=== PATIENT | female | born 1965 | race Caucasian/White ===

== ENCOUNTER → 2022-05-21 | Outpatient (CLI) | payer MEDICARE ==
--- NOTE | 2022-05-21 09:12 | MR ---
EXAMINATION TYPE: MR cervical spine wo/w con DATE OF EXAM: 05/21/2022 INDICATION: Patient age:Female; 56 years old; Reason for study: M54.2 CERVICALGIA, M54.12 RADICULOPATHY. Neck and upper back pain that radiates int o both arms, history of surgery. COMPARISON: None. TECHNIQUE: Multi planar, multi sequence imaging was performed utilizing: T1-weighted, T2-weighted, an d turbo inversion recovery imaging of the cervical spine. Imaging with and without IV contrast. IV Contrast: 6.5 cc Gadavist FINDINGS: Alignment: The cervical vertebral bodies have preserved heights. Alignment is within normal limits gi payton patient positioning. Bones: Bone signal is within normal limits. Multilevel degenerative disc disease is noted and most p ronounced at the C5-C7. vertebral levels. No abnormal postcontrast enhancement. Cord: A T2 signal focus within the spinal cord at the level of C6-C7. (Series 601 image 25) The remai nder of the spinal cord is unremarkable with regards to their signal intensity and morphology. No abn ormal postcontrast enhancement. Discs: Post surgical changes at C5-C6 and C6-C7. C2-C3: No significant disc pathology. The spinal canal is patent. No neural foraminal stenosis. C3-C4: A disc osteophyte complex is present with mild spinal canal stenosis. Bilateral facet and unc overtebral joint arthropathy are present with mild bilateral neural foraminal stenosis. C4-C5: A disc osteophyte complex is present with mild spinal canal stenosis. Bilateral facet and unc overtebral joint arthropathy are present with mild bilateral neural foraminal stenosis. C5-C6: The disc is surgically absent there is at least moderate spinal canal stenosis secondary to po st surgical osteophyte complex versus calcification of the posterior longitudinal ligament. Bilateral facet and uncovertebral joint arthropathy are present with moderate bilateral neural foraminal steno sis. C6-C7: The disc is surgically absent there is at least moderate spinal canal stenosis secondary to po st surgical osteophyte complex versus calcification of the posterior longitudinal ligament. Bilateral facet and uncovertebral joint arthropathy are present with moderate bilateral neural foraminal steno sis. C7-T1: No significant disc pathology. The spinal canal is patent. No neural foraminal stenosis. There is somewhat elongated suspected postsurgical osteophyte complex's dictation in the posterior lo ngitudinal ligament extending from C5 to C7 impresses upon the spinal cord with at least moderate spi nal canal stenosis at the level of C5-C6 includes 601 image 22, image 27, image 30. IMPRESSION: 1. Postsurgical changes with at least moderate spinal canal stenosis C5-C7 from suspected posterior longitudinal ligament calcification versus postsurgical osteophytes which impress upon the anterior s spencer cord. Single focus of spinal cord abnormality changes at C6-C7 likely chronic. 2. Multilevel disc degeneration changes with at least moderate neural foraminal stenosis C5-C7. 3. No abnormal postcontrast enhancement.
== END | disposition home or self-care (01) ==
LOC: RADMRIMAIN 07:50
PROVIDERS: ATTEND Orthopaedic Surgery Orthopaedic Surgery of the Spine
DX: M48.02 Spinal stenosis, cervical region (principal); M50.323 Other cervical disc degeneration at C6-C7 level
CPT/HCPCS: 72156; A9585

== ENCOUNTER 2024-12-07 12:17 | Emergency (ER) | payer MEDICARE ==
[2024-12-07 12:27] VITALS: RESP 18
--- NOTE | 2024-12-07 14:00 | ED ---
Fever HPI - General Chief Complaint: Abdominal Pain Stated Complaint: Fever, Lower ABD and Back Pain Time Seen by Provider: 12/07/24 13:28 Source: patient Mode of arrival: ambulatory Limitations: no limitations - History of Present Illness Initial Comments: This patient is a 59-year-old woman coming to have evaluation for fever. The patient states that she has not been feeling well and has noted the fever going back 4 days. She has not had specific symptoms infection other than having a cold sore but that came on 10 days ago. She has not had congestion, sore throat, cough, dyspnea, chest pain. No change in bowel movements. She does note some lower abdominal fullness and states that she does have urinary frequency but denies dysuria, hematuria or other symptoms. MD Complaint: fever Onset/Timin -: days(s) Temperature Source: oral Associated Symptoms: chills Treatments Prior to Arrival: none - Related Data Previous Rx's Medication Instructions Recorded Cephalexin [Keflex] 500 mg PO Q6HR 1 Days #12 cap 12/07/24 Allergies Allergy/AdvReac Type Severity Reaction Status Date / Time Penicillins Allergy Unknown Verified 12/07/24 12:27 Review of Systems ROS Statement: Those systems with pertinent positive or pertinent negative responses have been documented in the HPI. ROS Other: All systems not noted in ROS Statement are negative. Constitutional: Reports: fever. Denies: chills, weakness ENT: Denies: throat pain, congestion Respiratory: Denies: cough, dyspnea Cardiovascular: Denies: chest pain, palpitations, edema, syncope Gastrointestinal: Reports: as per HPI, abdominal pain. Denies: nausea, vomitin g, diarrhea, constipation, melena, hematochezia Genitourinary: Reports: frequency. Denies: urgency, dysuria, hematuria Musculoskeletal: Denies: back pain Skin: Denies: rash Neurological: Denies: headache, weakness, numbness Past Medical History Additional Past Medical History / Comment(s): RA Additional Past Surgical History / Comment(s): cervical spine, toe, tummy tuck Smoking Status: Former smoker Past Alcohol Use History: Occasional Past Drug Use History: Marijuana General Exam Limitations: no limitations General appearance: alert, in no apparent distress Head exam: Present: atraumatic, normocephalic Eye exam: Present: normal appearance. Absent: scleral icterus, conjunctival injection ENT exam: Present: normal oropharynx Neck exam: Present: normal inspection, full ROM. Absent: tenderness, meningismus, lymphadenopathy Respiratory exam: Present: normal lung sounds bilaterally. Absent: respiratory distress, wheezes, rales, rhonchi, stridor, accessory muscle use Cardiovascular Exam: Present: regular rate, normal rhythm, normal heart sounds. Absent: systolic murmur, diastolic murmur, rubs, gallop GI/Abdominal exam: Present: soft. Absent: distended, tenderness, guarding, rebound, rigid, mass Extremities exam: Present: normal inspection, normal capillary refill. Absent: pedal edema, calf tenderness Back exam: Present: normal inspection. Absent: CVA tenderness (R), CVA tenderness (L) Neurological exam: Present: alert Skin exam: Present: warm, dry, intact, normal color. Absent: rash Course Vital Signs 12/07/24 12/07/24 12:24 14:12 Temperature 102 F H 97.8 F Pulse Rate 102 H 92 Respiratory 18 18 Rate Blood Pressure 136/83 126/64 O2 Sat by Pulse 97 99 Oximetry Medical Decision Making - Lab Data Result diagrams: 12/07/24 14:00 12/07/24 14:00 Lab Results 12/07/24 12/07/24 12/07/24 Range/Units 14:00 14:00 14:00 WBC 16.49 H (4.50-10.00) 10*3/uL RBC 4.40 (4.10-5.20) 10*6/uL Hgb 13.2 (12.0-15.0) g/dL Hct 40.4 (37.2-46.3) % MCV 91.8 (80.0-97.0) fL MCH 30.0 (27.0-32.0) pg MCHC 32.7 (32.0-37.0) g/dL Plt Count 424 (140-440) 10*3/uL MPV 9.1 L (9.5-12.2) fL Immature Gran % (Auto) 0.5 % Neutrophils % 89.2 % Lymphocytes % 4.7 % Monocytes % 5.3 % Eosinophils % 0.2 % Basophils % 0.1 % Immature Gran # 0.08 H (0.00-0.04) 10*3/uL Neutrophils # 14.72 H (1.80-7.70) 10*3/uL Lymphocytes # 0.77 L (0.90-5.00) 10*3/uL Monocytes # 0.87 (0.20-1.00) 10*3/uL Eosinophils # 0.03 L (0.04-0.35) 10*3/uL Basophils # 0.02 (0.00-0.10) 10*3/uL Sodium 137 (137-145) mmol/L Potassium 4.6 (3.5-5.1) mmol/L Chloride 97 L (98-107) mmol/L Carbon Dioxide 30 (22-30) mmol/L Anion Gap 10 mmol/L BUN 15 (7-17) mg/dL Creatinine 0.43 L (0.52-1.04) mg/dL Est GFR (CKD-EPI)AfAm >90 (>60 ml/min/1.73 sqM) Est GFR (CKD-EPI)NonAf >90 (>60 ml/min/1.73 sqM) Glucose 103 H (74-99) mg/dL Plasma Lactic Acid Mason 1.9 (0.7-2.0) mmol/L Calcium 9.3 (8.4-10.2) mg/dL Total Bilirubin 0.8 (0.2-1.3) mg/dL AST 36 (14-36) U/L ALT 21 (4-34) U/L Alkaline Phosphatase 73 (38-126) U/L C-Reactive Protein 17.3 H (<1.0) mg/dL Total Protein 7.6 (6.3-8.2) g/dL Albumin 4.1 (3.5-5.0) g/dL Urine Color Urine Appearance (Clear) Urine pH (5.0-8.0) Ur Specific [place] (1.001-1.035) Urine Protein (Negative) Urine Glucose (UA) (Negative) Urine Ketones (Negative) Urine Blood (Negative) Urine Nitrite (Negative) Urine Bilirubin (Negative) Urine Urobilinogen (<2.0) mg/dL Ur Leukocyte Esterase (Negative) Urine RBC (0-5) /hpf Urine WBC (0-5) /hpf Ur Squamous Epith Cells (0-4) /hpf Urine Bacteria (None) /hpf Influenza Type A (PCR) (Not Detectd) Influenza Type B (PCR) (Not Detectd) RSV (PCR) (Not Detectd) SARS-CoV-2 (PCR) (Not Detectd) 12/07/24 12/07/24 Range/Units 14:09 15:08 WBC (4.50-10.00) 10*3/uL RBC (4.10-5.20) 10*6/uL Hgb (12.0-15.0) g/dL Hct (37.2-46.3) % MCV (80.0-97.0) fL MCH (27.0-32.0) pg MCHC (32.0-37.0) g/dL Plt Count (140-440) 10*3/uL MPV (9.5-12.2) fL Immature Gran % (Auto) % Neutrophils % % Lymphocytes % % Monocytes % % Eosinophils % % Basophils % % Immature Gran # (0.00-0.04) 10*3/uL Neutrophils # (1.80-7.70) 10*3/uL Lymphocytes # (0.90-5.00) 10*3/uL Monocytes # (0.20-1.00) 10*3/uL Eosinophils # (0.04-0.35) 10*3/uL Basophils # (0.00-0.10) 10*3/uL Sodium (137-145) mmol/L Potassium (3.5-5.1) mmol/L Chloride (98-107) mmol/L Carbon Dioxide (22-30) mmol/L Anion Gap mmol/L BUN (7-17) mg/dL Creatinine (0.52-1.04) mg/dL Est GFR (CKD-EPI)AfAm (>60 ml/min/1.73 sqM) Est GFR (CKD-EPI)NonAf (>60 ml/min/1.73 sqM) Glucose (74-99) mg/dL Plasma Lactic Acid Mason (0.7-2.0) mmol/L Calcium (8.4-10.2) mg/dL Total Bilirubin (0.2-1.3) mg/dL AST (14-36) U/L ALT (4-34) U/L Alkaline Phosphatase (38-126) U/L C-Reactive Protein (<1.0) mg/dL Total Protein (6.3-8.2) g/dL Albumin (3.5-5.0) g/dL Urine Color Colorless Urine Appearance Clear (Clear) Urine pH 7.0 (5.0-8.0) Ur Specific [place] 1.013 (1.001-1.035) Urine Protein Negative (Negative) Urine Glucose (UA) Negative (Negative) Urine Ketones Negative (Negative) Urine Blood Small H (Negative) Urine Nitrite Positive H (Negative) Urine Bilirubin Negative (Negative) Urine Urobilinogen <2.0 (<2.0) mg/dL Ur Leukocyte Esterase Moderate H (Negative) Urine RBC 5 (0-5) /hpf Urine WBC 27 H (0-5) /hpf Ur Squamous Epith Cells <1 (0-4) /hpf Urine Bacteria Occasional H (None) /hpf Influenza Type A (PCR) Not Detected (Not Detectd) Influenza Type B (PCR) Not Detected (Not Detectd) RSV (PCR) Not Detected (Not Detectd) SARS-CoV-2 (PCR) Not Detected (Not Detectd) Disposition Clinical Impression: Urinary tract infection Disposition: HOME SELF-CARE Condition: Good Instructions (If sedation given, give patient instructions): Urinary Tract Infection in Women (ED) Prescriptions: Cephalexin [Keflex] 500 mg PO Q6HR 1 Days #12 cap Is patient prescribed a controlled substance at d/c from ED?: No Referrals: Pranav Cam MD [Primary Care Provider] - 1-2 days
[2024-12-07 14:07] LABS: Basophils # (A) 0.02 10*3/uL (0.00-0.10); Basophils % (A) 0.1 %; Eosinophils # (A) 0.03 10*3/uL (0.04-0.35); Eosinophils % (A) 0.2 %; HCT 40.4 % (37.2-46.3); HGB 13.2 g/dL (12.0-15.0); Lymphocytes # (A) 0.77 10*3/uL (0.90-5.00); Lymphocytes % (A) 4.7 %; MCHC 32.7 g/dL (32.0-37.0); MCV 91.8 fL (80.0-97.0); Mean Platelet Volume 9.1 fL (9.5-12.2); Monocytes # (A) 0.87 10*3/uL (0.20-1.00); Monocytes % (A) 5.3 %; Neutrophils # (A) 14.72 10*3/uL (1.80-7.70); Neutrophils % (A) 89.2 %; Platelet Count 424 10*3/uL (140-440); RDW 14.8 % (11.5-14.5); WBC 16.49 10*3/uL (4.50-10.00)
[2024-12-07] MEDS: ACETAMINOPHEN TAB 325 MG TAB PO STA (14:10)
[2024-12-07] MEDS: SODIUM CHLORIDE 0.9% 1,000 ML IV ONE (14:11)
[2024-12-07 14:15] VITALS: TEMP 97.8
[2024-12-07 14:19] LABS: ALT 21 U/L (4-34); African American GFR (CKD) >90 (>60 ml/min/1.73 sqM); Anion Gap 10 mmol/L; Blood Urea Nitrogen 15 mg/dL (7-17); Calcium 9.3 mg/dL (8.4-10.2); Carbon Dioxide 30 mmol/L (22-30); Chloride 97 mmol/L (98-107); Glucose 103 mg/dL (74-99); Non-African American GFR(CKD) >90 (>60 ml/min/1.73 sqM); Sodium 137 mmol/L (137-145); Total Bilirubin 0.8 mg/dL (0.2-1.3)
[2024-12-07 14:30] LABS: C Reactive Protein 17.3 mg/dL (<1.0)
[2024-12-07 14:35] LABS: AST 36 U/L (14-36); Albumin 4.1 g/dL (3.5-5.0); Potassium 4.6 mmol/L (3.5-5.1); Total Protein 7.6 g/dL (6.3-8.2)
[2024-12-07 14:36] LABS: Alkaline Phosphatase 73 U/L (38-126)
[2024-12-07 14:51] LABS: Influenza A Not Detected (Not Detectd); Influenza B Not Detected (Not Detectd); RSV Not Detected (Not Detectd)
[2024-12-07 15:35] LABS: Appearance,Urine Clear (Clear); Bacteria,Urine Occasional /hpf; Bilirubin,Urine Negative (Negative); Blood,Urine Small (Negative); Color,Urine Colorless; Glucose,Urine (UA) Negative (Negative); Ketones,Urine Negative (Negative); Leukocyte Esterase,Urine Moderate (Negative); Nitrite,Urine Positive (Negative); Protein,Urine Negative (Negative); RBC,Urine 5 /hpf (0-5); Specific Gravity,Urine 1.013 (1.001-1.035); Squamous Epithelial Cell,Urine <1 /hpf (0-4); Urobilinogen,Urine <2.0 mg/dL (<2.0); WBC,Urine 27 /hpf (0-5)
--- NOTE | 2024-12-07 16:05 | CT ---
EXAMINATION TYPE: CT abdomen pelvis w con DATE OF EXAM: 12/07/2024 3:59 PM COMPARISON: None available. CLINICAL INDICATION: Female, 59 years old with history of abdominal pain, RLQ tenderness; RLQ PAIN TECHNIQUE: Axial CT abdomen pelvis w con;Sagittal and coronal reformats were created on a separate w orkstation. Contrast used:100 mL of Isovue 300 with IV Contrast, (none if empty) Oral contrast used: without Oral Contrast (none if empty) CT DLP: 632.6 mGycm, Automated exposure control for dose reduction was used. FINDINGS: LOWER CHEST: Unremarkable ABDOMEN LIVER: Unremarkable GALLBLADDER AND BILE DUCTS: Unremarkable. PANCREAS: Unremarkable. SPLEEN: Unremarkable. ADRENAL GLANDS: Unremarkable. KIDNEYS AND URETERS: No evidence of hydronephrosis or renal calculus. The ureters are unremarkable. PELVIS BLADDER: No evidence for wall thickening or mass given limitations of exam. REPRODUCTIVE: Unremarkable. ABDOMEN & PELVIS STOMACH AND BOWEL: Stomach and duodenum are unremarkable. Moderate sized hernia. Moderate to large vo lume diffuse colonic stool burden suggesting constipation. Of colonic diverticulosis without acute di verticulitis. Appendix not discretely visualized but there are no secondary findings suggestive of ac jena appendicitis. No evidence of bowel obstruction. PERITONEUM/RETROPERITONEUM: No evidence of pneumoperitoneum or free fluid. VASCULATURE: No evidence of aortic aneurysm. MUSCULOSKELETAL: No acute osseous abnormalities LYMPH NODES: No gross evidence for lymphadenopathy. SOFT TISSUE/ABDOMINAL WALL: Unremarkable IMPRESSION: 1. No acute abnormality in the abdomen/pelvis. 2. Moderate to large volume colonic stool suggesting constipation. 3. Colonic diverticulosis without acute diverticulitis. [facility], , 12/07/2024 4:03 PM
[2024-12-07 16:59] VITALS: BP 121/76; PULSE 91
== END 2024-12-07 17:21 | disposition home or self-care (01) ==
LOC: EC 12:17
DX: N39.0 Urinary tract infection, site not specified (principal); Z11.52 Encounter for screening for COVID-19; Z87.891 Personal history of nicotine dependence; Z88.0 Allergy status to penicillin
CPT/HCPCS: 36415; 80053; 83605; 85025; 86140; 81001; 87636; 74177; 99284; 96374; 96361; J0696; Q9967

== ENCOUNTER 2024-12-18 14:57 | Inpatient (IN) | payer MEDICARE ==
--- NOTE | 2024-12-18 16:29 | US ---
EXAMINATION TYPE: US renals and bladder DATE OF EXAM: 12/18/2024 COMPARISON: CT CLINICAL INDICATION: Female, 59 years old with history of UTI TECHNIQUE: Grayscale imaging of the bilateral kidneys and urinary bladder: FINDINGS: EXAM MEASUREMENTS: Right Kidney: 11.4 x 5.1 x 4.9 cm Left Kidney: 11.0 x 6.7 x 5.9 cm Right Kidney: No hydronephrosis or masses seen Left Kidney: No hydronephrosis or masses seen, though the upper and lower poles gassed out limiting t heir assessment Bladder: wnl Bilateral Jets seen: Yes IMPRESSION: No hydronephrosis. Bladder grossly unremarkable by ultrasound. [facility], Workstation: [email or web address], 12/18/2024 4:27 PM
[2024-12-18] MEDS: PANTOPRAZOLE 40 MG/10 ML VIAL IVP STA (16:38)
[2024-12-18] MEDS: ACETAMINOPHEN TAB 500 MG TAB PO STA (16:38)
[2024-12-18] MEDS: ONDANSETRON 4 MG/2 ML VIAL IVP STA (16:38)
[2024-12-18] MEDS: SODIUM CHLORIDE 0.9% 1,000 ML IV ONE (16:39)
[2024-12-18] MEDS: IBUPROFEN 800 MG TAB PO STA (16:39)
[2024-12-18 16:55] LABS: Basophils # (A) 0.05 10*3/uL (0.00-0.10); Basophils % (A) 0.2 %; Eosinophils # (A) 0.08 10*3/uL (0.04-0.35); Eosinophils % (A) 0.3 %; HCT 36.1 % (37.2-46.3); HGB 11.8 g/dL (12.0-15.0); Lymphocytes # (A) 0.88 10*3/uL (0.90-5.00); Lymphocytes % (A) 3.2 %; MCH 29.1 pg (27.0-32.0); MCHC 32.7 g/dL (32.0-37.0); MCV 88.9 fL (80.0-97.0); Mean Platelet Volume 8.4 fL (9.5-12.2); Monocytes % (A) 5.5 %; Neutrophils # (A) 24.69 10*3/uL (1.80-7.70); Neutrophils % (A) 90.1 %; Platelet Count 578 10*3/uL (140-440); RBC 4.06 10*6/uL (4.10-5.20); RDW 15.2 % (11.5-14.5); WBC 27.39 10*3/uL (4.50-10.00)
[2024-12-18 17:07] LABS: Partial Thromboplastin Time 25.9 sec (22.0-30.0)
[2024-12-18 17:09] LABS: Appearance,Urine Clear (Clear); Bilirubin,Urine Negative (Negative); Blood,Urine Small (Negative); Budding Yeast,Urine Few /hpf; Color,Urine Yellow; Glucose,Urine (UA) Negative (Negative); Ketones,Urine Negative (Negative); Leukocyte Esterase,Urine Moderate (Negative); Mucus,Urine Rare /hpf; Nitrite,Urine Negative (Negative); Protein,Urine 1+ (Negative); RBC,Urine 8 /hpf (0-5); Specific Gravity,Urine 1.009 (1.001-1.035); Squamous Epithelial Cell,Urine 1 /hpf (0-4); Urobilinogen,Urine <2.0 mg/dL (<2.0); WBC,Urine 95 /hpf (0-5)
[2024-12-18 17:14] LABS: ALT 30 U/L (4-34); AST 31 U/L (14-36); African American GFR (CKD) >90 (>60 ml/min/1.73 sqM); Albumin 3.5 g/dL (3.5-5.0); Alkaline Phosphatase 136 U/L (38-126); Amylase 50 U/L (30-110); Anion Gap 11 mmol/L; Blood Urea Nitrogen 15 mg/dL (7-17); Calcium 9.4 mg/dL (8.4-10.2); Carbon Dioxide 29 mmol/L (22-30); Chloride 96 mmol/L (98-107); Glucose 97 mg/dL (74-99); Lipase 25 U/L (23-300); Non-African American GFR(CKD) >90 (>60 ml/min/1.73 sqM); Potassium 4.6 mmol/L (3.5-5.1); Sodium 136 mmol/L (137-145); Total Bilirubin 0.7 mg/dL (0.2-1.3)
[2024-12-18] MEDS ORDERED: NALOXONE 0.4 MG/ML 1 ML VIAL IV PRN (18:00)
[2024-12-18] MEDS ORDERED: ONDANSETRON 4 MG/2 ML VIAL IVP PRN (18:00)
--- NOTE | 2024-12-18 18:00 | ED ---
General Adult HPI - General Chief complaint: Abdominal Pain Stated complaint: Urogenital/Here a week ago Time Seen by Provider: 12/18/24 15:25 Source: patient, RN notes reviewed, old records reviewed Mode of arrival: ambulatory Limitations: no limitations - History of Present Illness Initial comments: Patient is a 59-year-old female presents Emergency Department complaining of abdominal pain, dysuria. Concerned that her UTI is continuing. Originally seen on December 07 for similar complaints. Has completed a course of antibiotics and then started on a second course of antibiotics but symptoms have persisted. Is having lower anterior abdominal pain and some back pain with it. Fever currently is 102.9. Denies any nausea vomiting or diarrhea. Denies any chest pain or shortness of breath or cough. Denies any other acute complaints. Concern for UTI. Presents for further evaluation at this time. - Related Data Home Medications Medication Instructions Recorded Confirmed Acetaminophen/Diphenhydramine 2 tab PO HS 12/18/24 12/18/24 [Tylenol PM 500-25mg] Ciprofloxacin HCl [Cipro] 500 mg PO Q12HR 12/18/24 12/18/24 Gabapentin [Neurontin] 300 mg PO HS 12/18/24 12/18/24 HYDROcodone/APAP 10-325MG [[place] 1 tab PO Q4-6H PRN MDD 4.5 tabs 12/18/24 12/18/24 10-325] cycloSPORINE 0.05% OPHTH SOLN 1 applicator BOTH EYES Q12H 12/18/24 12/18/24 [Restasis] prednisoLONE ACETATE 1% OPHTH 1 drop BOTH EYES BID PRN 12/18/24 12/18/24 [Pred Forte 1%] Allergies Allergy/AdvReac Type Severity Reaction Status Date / Time Penicillins Allergy Unknown Verified 12/18/24 16:56 Childhood Review of Systems ROS Statement: Those systems with pertinent positive or pertinent negative responses have been documented in the HPI. Review of Systems: CONST: Denies fever EYES: Denies blurry vision ENT: Denies nasal congestion C/V: Denies Chest pain RESP: Denies shortness of breath GI: Endorses abdominal pain : Endorses dysuria SKIN: Denies rash. MSK: Denies joint pain. NEURO: Denies headache ROS Other: All systems not noted in ROS Statement are negative. Past Medical History Additional Past Medical History / Comment(s): RA Additional Past Surgical History / Comment(s): cervical spine, toe, tummy tuck Smoking Status: Former smoker Past Alcohol Use History: Occasional Past Drug Use History: Marijuana General Exam - General Exam Comments Initial Comments: General: Appears in no acute distress. HEAD: Normal with no signs of head trauma. EYES: PERRLA, EOMI, conjunctiva normal, no discharge. ENT: Hearing grossly intact, normal oropharynx. RESPIRATORY: Clear breath sounds bilaterally. No wheezes, rales, or rhonchi. C/V: Regular rate and rhythm. S1 and S2 auscultated, no edema, peripheral pulses 2+ and intact throughout ABD: Lower abdominal discomfort on palpation. No significant guarding or rebound tenderness. No peritoneal signs. No rebound tenderness. EXT: Normal range of motion, no obvious deformity SKIN: No rashes or lesions observed on exposed skin. NEURO: Alert and oriented x 4. Limitations: no limitations Course Vital Signs 12/18/24 12/18/24 12/18/24 15:05 18:09 18:10 Temperature 102.9 F H 99.4 F Pulse Rate 96 88 90 Respiratory 16 18 18 Rate Blood Pressure 143/77 102/56 102/56 O2 Sat by Pulse 96 94 L 95 Oximetry Medical Decision Making - Medical Decision Making Was pt. sent in by a medical professional or institution (, PA, [employer], urgent care, hospital, or detention...) When possible be specific @ -No Did you speak to anyone other than the patient for history (EMS, parent, family, police, friend...)? What history was obtained from this source @ -No Did you review nursing and triage notes (agree or disagree)? Why? @ -I reviewed and agree with nursing and triage notes Were old charts reviewed (outside hosp., previous admission, EMS record, old EKG, old radiological studies, urgent care reports/EKG's, detention records)? Report findings @ -Reviewed old charts showing prior abdominal CT obtained on December 07, 2024 which showed no obvious acute abnormality. Differential Diagnosis (chest pain, altered mental status, abdominal pain women, abdominal pain men, vaginal bleeding, weakness, fever, dyspnea, syncope, headache, dizziness, GI bleed, back pain, seizure, CVA, palpatations, mental health, musculoskeletal)? @ -Differential Abdominal Pain Women: Appendicitis, Cholecystitis, diverticulosis, ischemic bowel, pancreatitis, hepatitis, UTI, gastroenteritis, AAA, incarcerated hernia, bowel obstruction, constipation, inflammatory bowel, hepatitis, peptic ulcer disease, splenic infarction, perforated viscus, vulvitis, ovarian torsion, PID, kidney stone, placenta abruption, this is not meant to be an all-inclusive list EKG interpreted by me (3pts min.). @ -As above X-rays interpreted by me (1pt min.). @ -None done CT interpreted by me (1pt min.). @ -None done U/S interpreted by me (1pt. min.). @ -Renal ultrasound negative for any obvious acute abnormality. What testing was considered but not performed or refused? (CT, X-rays, U/S, labs)? Why? @ -None What meds were considered but not given or refused? Why? @ -None Did you discuss the management of the patient with other professionals ( professionals i.e. , PA, [employer], lab, RT, psych nurse, secondary social studies teacher, railroad watchman, teacher, bank officer, adult protective caseworker)? Give summary @ -No Was smoking cessation discussed for >3mins.? @ -No Was critical care preformed (if so, how long)? @ -Yes, 31 minutes. Were there social determinants of health that impacted care today? How? (Homelessness, low income, unemployed, alcoholism, drug addiction, crockett sportation, low edu. Level, literacy, decrease access to med. care, shelter, rehab)? @ -No Was there de-escalation of care discussed even if they declined (Discuss DNR or withdrawal of care, Hospice)? DNR status @ -No What co-morbidities impacted this encounter? (DM, HTN, Smoking, COPD, CAD, Cancer, CVA, ARF, Chemo, Hep., AIDS, mental health diagnosis, sleep apnea, morbid obesity)? @ -None Was patient admitted / discharged? Hospital course, mention meds given and route, prescriptions, significant lab abnormalities, going to OR and other pertinent info. @ -Patient presents with what appears to be a recurrent UTI. Vitals are within acceptable limits except for fever of 102.9. We will obtain abdominal labs, urine studies, ultrasound of bladder and kidneys. Recent CT obtained 10 days ago was unremarkable. He is in agreement this plan. Patient was given Tylenol and Motrin as well as a 1 L fluid bolus. Laboratory studies remarkable for leukocytosis of 27. Hemoglobin is mildly low at 11.8. Is not on blood thinners. Patient's urinalysis concerning for UTI. I updated the patient. Patient does meet sepsis criteria she has multiple SIRS criteria, including elevated leukocytosis of 27 in addition to the fever. Patient met sepsis criteria at 1725. Patient placed on IV Rocephin, given additional 1 L fluid bolus of lactated Ringer's and placed on maintenance infusion at 130 cc an hour. Blood culture obtained and sent. Urine culture sent. Lactic acid within normal limits. Patient will be admitted to the hospital. I spoke with Dr. Cabrales who accepted the admission. Undiagnosed new problem with uncertain prognosis? @ -No Drug Therapy requiring intensive monitoring for toxicity (Heparin, Nitro, Insulin, Cardizem)? @ -No Were any procedures done? @ -No Diagnosis/symptom? @ -UTI, sepsis Acute, or Chronic, or Acute on Chronic? @ -Acute Uncomplicated (without systemic symptoms) or Complicated (systemic symptoms)? @ -Complicated Side effects of treatment? @ -No Exacerbation, Progression, or Severe Exacerbation? @ -No Poses a threat to life or bodily function? How? (Chest pain, USA, VT, pneumonia, PE, COPD, DKA, ARF, appy, cholecystitis, CVA, Diverticulitis, Homicidal, Suicidal, threat to staff... and all critical care pts) @ -Yes - Lab Data Result diagrams: 12/18/24 16:41 12/18/24 16:41 Lab Results 12/18/24 12/18/24 12/18/24 Range/Units 16:41 16:41 16:41 WBC 27.39 H (4.50-10.00) 10*3/uL RBC 4.06 L (4.10-5.20) 10*6/uL Hgb 11.8 L (12.0-15.0) g/dL Hct 36.1 L (37.2-46.3) % MCV 88.9 (80.0-97.0) fL MCH 29.1 (27.0-32.0) pg MCHC 32.7 (32.0-37.0) g/dL Plt Count 578 H (140-440) 10*3/uL MPV 8.4 L (9.5-12.2) fL Immature Gran % (Auto) 0.7 % Neutrophils % 90.1 % Lymphocytes % 3.2 % Monocytes % 5.5 % Eosinophils % 0.3 % Basophils % 0.2 % Immature Gran # 0.19 H (0.00-0.04) 10*3/uL Neutrophils # 24.69 H (1.80-7.70) 10*3/uL Lymphocytes # 0.88 L (0.90-5.00) 10*3/uL Monocytes # 1.50 H (0.20-1.00) 10*3/uL Eosinophils # 0.08 (0.04-0.35) 10*3/uL Basophils # 0.05 (0.00-0.10) 10*3/uL PT 11.0 (10.0-12.5) sec INR 1.0 (<1.2) APTT 25.9 (22.0-30.0) sec Sodium 136 L (137-145) mmol/L Potassium 4.6 (3.5-5.1) mmol/L Chloride 96 L (98-107) mmol/L Carbon Dioxide 29 (22-30) mmol/L Anion Gap 11 mmol/L BUN 15 (7-17) mg/dL Creatinine 0.51 L (0.52-1.04) mg/dL Est GFR (CKD-EPI)AfAm >90 (>60 ml/min/1.73 sqM) Est GFR (CKD-EPI)NonAf >90 (>60 ml/min/1.73 sqM) Glucose 97 (74-99) mg/dL Plasma Lactic Acid Mason (0.7-2.0) mmol/L Calcium 9.4 (8.4-10.2) mg/dL Total Bilirubin 0.7 (0.2-1.3) mg/dL AST 31 (14-36) U/L ALT 30 (4-34) U/L Alkaline Phosphatase 136 H (38-126) U/L Total Protein 7.0 (6.3-8.2) g/dL Albumin 3.5 (3.5-5.0) g/dL Amylase 50 (30-110) U/L Lipase 25 (23-300) U/L Urine Color Urine Appearance (Clear) Urine pH (5.0-8.0) Ur Specific [place] (1.001-1.035) Urine Protein (Negative) Urine Glucose (UA) (Negative) Urine Ketones (Negative) Urine Blood (Negative) Urine Nitrite (Negative) Urine Bilirubin (Negative) Urine Urobilinogen (<2.0) mg/dL Ur Leukocyte Esterase (Negative) Urine RBC (0-5) /hpf Urine WBC (0-5) /hpf Ur Squamous Epith Cells (0-4) /hpf Urine Mucus (None) /hpf Urine Yeast (Budding) (None) /hpf 12/18/24 12/18/24 Range/Units 16:41 16:41 WBC (4.50-10.00) 10*3/uL RBC (4.10-5.20) 10*6/uL Hgb (12.0-15.0) g/dL Hct (37.2-46.3) % MCV (80.0-97.0) fL MCH (27.0-32.0) pg MCHC (32.0-37.0) g/dL Plt Count (140-440) 10*3/uL MPV (9.5-12.2) fL Immature Gran % (Auto) % Neutrophils % % Lymphocytes % % Monocytes % % Eosinophils % % Basophils % % Immature Gran # (0.00-0.04) 10*3/uL Neutrophils # (1.80-7.70) 10*3/uL Lymphocytes # (0.90-5.00) 10*3/uL Monocytes # (0.20-1.00) 10*3/uL Eosinophils # (0.04-0.35) 10*3/uL Basophils # (0.00-0.10) 10*3/uL PT (10.0-12.5) sec INR (<1.2) APTT (22.0-30.0) sec Sodium (137-145) mmol/L Potassium (3.5-5.1) mmol/L Chloride (98-107) mmol/L Carbon Dioxide (22-30) mmol/L Anion Gap mmol/L BUN (7-17) mg/dL Creatinine (0.52-1.04) mg/dL Est GFR (CKD-EPI)AfAm (>60 ml/min/1.73 sqM) Est GFR (CKD-EPI)NonAf (>60 ml/min/1.73 sqM) Glucose (74-99) mg/dL Plasma Lactic Acid Mason 1.7 (0.7-2.0) mmol/L Calcium (8.4-10.2) mg/dL Total Bilirubin (0.2-1.3) mg/dL AST (14-36) U/L ALT (4-34) U/L Alkaline Phosphatase (38-126) U/L Total Protein (6.3-8.2) g/dL Albumin (3.5-5.0) g/dL Amylase (30-110) U/L Lipase (23-300) U/L Urine Color Yellow Urine Appearance Clear (Clear) Urine pH 7.0 (5.0-8.0) Ur Specific Tar[place] 1.009 (1.001-1.035) Urine Protein 1+ H (Negative) Urine Glucose (UA) Negative (Negative) Urine Ketones Negative (Negative) Urine Blood Small H (Negative) Urine Nitrite Negative (Negative) Urine Bilirubin Negative (Negative) Urine Urobilinogen <2.0 (<2.0) mg/dL Ur Leukocyte Esterase Moderate H (Negative) Urine RBC 8 H (0-5) /hpf Urine WBC 95 H (0-5) /hpf Ur Squamous Epith Cells 1 (0-4) /hpf Urine Mucus Rare H (None) /hpf Urine Yeast (Budding) Few H (None) /hpf - EKG Data -: EKG Interpreted by Me EKG Comments: 12-lead Electrocardiogram Interpretation Note EKG was reviewed and interpreted by myself. 12-lead ECG performed at 1551 is interpreted by me as revealing [normal sinus rhythm] at a rate of 90 beats per minute. [place] is normal. MD interval is 149 ms, QRS duration 79 ms, QTc is 383 ms.. [There were no ST or T wave abnormalities to suggest myocardial ischemia or injury]. [R wave progression across the precordium was satisfactory]. [By my interpretation this EKG is non-diagnostic for acute ischemia]. Critical Care Time Critical Care Time: Yes Total Critical Care Time: 31 Disposition Clinical Impression: UTI (urinary tract infection), Sepsis Disposition: ADMITTED IP TO THIS [facility] Condition: Serious Time of Disposition: 17:40
[2024-12-18] MEDS ORDERED: HYDROcodone/APAP 10-325MG 1 EACH TAB PO PRN (18:21)
[2024-12-18] MEDS ORDERED: prednisoLONE ACETATE 1% OPHTH DROPS 5 ML BTL BOTH EYES PRN (18:21)
--- NOTE | 2024-12-18 18:26 | P.HPIM ---
History of Present Illness H&P Date: 12/18/24 59 year old F with PMH of RA presents to the ED for fever and suprapubic discomfort. Patient reports fever that started on 12/07. She was evaluated in the ED and given a course of Keflex. When her symptoms persisted, she went to her PCP on Monday and was started on Ciprofloxacin. She reports nausea and vomiting since then. Persistent fever as high as 103F sent her to the ED. Of note, she stopped taking MTX 3 weeks ago in preparation for Remicade infusion. She denies any headache, edema, cough, chest pain, SOB, palpitations. No changes in appetite or weight. No dizziness, numbness/weakness/tinging of the extremities. In the ED she underwent extensive evaluation. BP 143/77, HR 96, T 102.9, RR 16, 96% on RA. CBC, Coag panel, CMP significant for WBC 27.39, RBC 4.06, Hg 11.8, Hct 36.1, Plt 578, Na 136, Cl 96, Cr 0.51, alk phos 136. Amylase + Lipase neg. Lactic acid 1.7. UA mod LE with 95 WBCs. Renal US no hydro. General: no distress, appears at stated age Derm: warm, dry Head: atraumatic, normocephalic, symmetric Mouth: no lip lesion, mucus membranes moist Cardiovascular: S1 S2 tachy. No murmur. Lungs: Clear to auscultation bilaterally, no accessory muscle use Ext: no gross muscle atrophy, no edema, no contractures Neuro: No focal neurologic deficits. Psych: Alert and oriented. Based on my assessment of this patient, this patient meets a high complexity level of care. Sepsis due to UTI: Start Rocephin 2g IV QD. Obtain UCx + BCx. LR at 130 cc/hr. Telemetry monitoring. Tylenol 650 mg PO Q6H PRN fever. Normocytic anemia with Thrombocytosis: Likely iron def. anemia. Obtain iron studies, B12 and Folate. HypoCl hypoNa: Likely dehydration. IV hydration as above. Rheumatoid arthritis: Immunocompromised due to use of MTX. Outpatient Rhematology follow up. Keratoconjunctivitis sicca: Prednisolone 1 drop BID PRN, Cyclosporine 1 drop BID. CODE STATUS: FULL CODE DVT Prophylaxis: Lovenox. GI Prophylaxis: Designated medical POA if patient is not able to make medical decisions for themselves: . I have reviewed the following contract consultant notes: ED note. I have reviewed the results of the following tests: As above. I have ordered the following tests: As above. I have discussed the care of this patient with the following independent historian: ALEXI. I have independently interpreted the following test below: I have discussed the management of this patient with the following physician: ED provider. Past Medical History Additional Past Medical History / Comment(s): RA Additional Past Surgical History / Comment(s): cervical spine, toe, tummy tuck Smoking Status: Former smoker Past Alcohol Use History: Occasional Past Drug Use History: Marijuana Medications and Allergies Home Medications Medication Instructions Recorded Confirmed Type Acetaminophen/Diphenhydramine 2 tab PO HS 12/18/24 12/18/24 History [Tylenol PM 500-25mg] Ciprofloxacin HCl [Cipro] 500 mg PO Q12HR 12/18/24 12/18/24 History Gabapentin [Neurontin] 300 mg PO HS 12/18/24 12/18/24 History HYDROcodone/APAP 10-325MG [[place] 1 tab PO Q4-6H PRN MDD 4.5 tabs 12/18/24 12/18/24 History 10-325] cycloSPORINE 0.05% OPHTH SOLN 1 applicator BOTH EYES Q12H 12/18/24 12/18/24 History [Restasis] prednisoLONE ACETATE 1% OPHTH 1 drop BOTH EYES BID PRN 12/18/24 12/18/24 History [Pred Forte 1%] Allergies Allergy/AdvReac Type Severity Reaction Status Date / Time Penicillins Allergy Unknown Verified 12/18/24 16:56 Childhood Physical Exam Vitals: Vital Signs Temp Pulse Resp BP Pulse Ox 12/18/24 18:10 99.4 F 90 18 102/56 95 12/18/24 18:09 88 18 102/56 94 L 12/18/24 15:05 102.9 F H 96 16 143/77 96 Intake and Output 12/18/24 12/18/24 12/18/24 06:59 14:59 22:59 Other: Weight 58.967 kg Results CBC & Chem 7: 12/18/24 16:41 12/18/24 16:41 Labs: Abnormal Lab Results - Last 24 Hours (Table) 12/18/24 12/18/24 12/18/24 Range/Units 16:41 16:41 16:41 WBC 27.39 H (4.50-10.00) 10*3/uL RBC 4.06 L (4.10-5.20) 10*6/uL Hgb 11.8 L (12.0-15.0) g/dL Hct 36.1 L (37.2-46.3) % Plt Count 578 H (140-440) 10*3/uL MPV 8.4 L (9.5-12.2) fL Immature Gran # 0.19 H (0.00-0.04) 10*3/uL Neutrophils # 24.69 H (1.80-7.70) 10*3/uL Lymphocytes # 0.88 L (0.90-5.00) 10*3/uL Monocytes # 1.50 H (0.20-1.00) 10*3/uL Sodium 136 L (137-145) mmol/L Chloride 96 L (98-107) mmol/L Creatinine 0.51 L (0.52-1.04) mg/dL Alkaline Phosphatase 136 H (38-126) U/L Urine Protein 1+ H (Negative) Urine Blood Small H (Negative) Ur Leukocyte Esterase Moderate H (Negative) Urine RBC 8 H (0-5) /hpf Urine WBC 95 H (0-5) /hpf Urine Mucus Rare H (None) /hpf Urine Yeast (Budding) Few H (None) /hpf
[2024-12-18] MEDS: LACTATED RINGERS 1,000 ML IV ONE (18:44)
[2024-12-18] MEDS: LACTATED RINGERS 1,000 ML IV SCH (18:44)
[2024-12-18] MEDS: GABAPENTIN 300 MG CAP PO SCH (21:27)
[2024-12-18] MEDS: cycloSPORINE 0.05% OPHTH 0.4 ML DROPERETTE BOTH EYES SCH (21:27)
[2024-12-19] MEDS: IBUPROFEN 400 MG TAB PO PRN (02:26)
[2024-12-19] MEDS: ACETAMINOPHEN TAB 325 MG TAB PO PRN (02:26)
[2024-12-19] MEDS: PANTOPRAZOLE 40 MG/10 ML VIAL IV SCH (08:28)
[2024-12-19] MEDS: ENOXAPARIN 40 MG/0.4 ML SYRINGE SQ SCH (08:29)
[2024-12-19 08:46] LABS: Basophils # (A) 0.05 X 10*3/uL (0.00-0.10); Basophils % (A) 0.3 %; Eosinophils # (A) 0.19 X 10*3/uL (0.04-0.35); HCT 30.4 % (37.2-46.3); HGB 9.6 g/dL (12.0-15.0); Lymphocytes # (A) 1.09 X 10*3/uL (0.90-5.00); Lymphocytes % (A) 5.5 %; MCH 29.2 pg (27.0-32.0); MCHC 31.6 g/dL (32.0-37.0); MCV 92.4 FL (80.0-97.0); Monocytes % (A) 7.6 %; NRBC Per 100 WBC 0 X 10*3/uL (0.00-0.01); Neutrophils # (A) 16.83 X 10*3/uL (1.80-7.70); Neutrophils % (A) 84.7 %; Platelet Count 523 X 10*3/uL (140-440); RBC 3.29 X 10*6/uL (4.10-5.20); RDW 15.4 % (11.5-14.5); WBC 19.83 X 10*3/uL (4.50-10.00)
[2024-12-19 09:19] LABS: % Iron Saturation 3.02 (12.00-45.00); Glucose 104 mg/dL (70-110)
[2024-12-19 09:20] LABS: ALT 20 U/L (8-44); AST 19 U/L (13-35); Albumin 2.6 g/dL (3.8-4.9); Albumin/Globulin Ratio 1.04 Ratio (1.60-3.17); Alkaline Phosphatase 98 U/L (41-126); Calcium 8.1 mg/dL (8.7-10.3); Carbon Dioxide 23.1 mmol/L (21.6-31.8); Chloride 107 mmol/L (96-109); Globulin 2.5 g/dL (1.6-3.3); Potassium 4.1 mmol/L (3.5-5.5); Sodium 141 mmol/L (135-145); Total Bilirubin 0.2 mg/dL (0.3-1.2); Total Protein 5.1 g/dL (6.2-8.2)
--- NOTE | 2024-12-19 11:51 | P.PN ---
Subjective Progress Note Date: 12/19/24 59 year old F with PMH of RA presents to the ED for fever and suprapubic discomfort. Patient reports fever that started on 12/07. She was evaluated in the ED and given a course of Keflex. When her symptoms persisted, she went to her PCP on Monday and was started on Ciprofloxacin. She reports nausea and vomiting since then. Persistent fever as high as 103F sent her to the ED. Of note, she stopped taking MTX 3 weeks ago in preparation for Remicade infusion. She denies any headache, edema, cough, chest pain, SOB, palpitations. No changes in appetite or weight. No dizziness, numbness/weakness/tinging of the extremities. In the ED she underwent extensive evaluation. BP 143/77, HR 96, T 102.9, RR 16, 96% on RA. CBC, Coag panel, CMP significant for WBC 27.39, RBC 4.06, Hg 11.8, Hct 36.1, Plt 578, Na 136, Cl 96, Cr 0.51, alk phos 136. Amylase + Lipase neg. Lactic acid 1.7. UA mod LE with 95 WBCs. Renal US no hydro. Started on Rocephin and admitted for further workup and management. 12/19 Patient was seen and examined. Feeling well. Suprapubic discomfort. CBC and CMP significant for WBC 19.83, RBC 3.29, Hg 9.6, Hct 30.4, PLt 523, Cr 0.5, Ca 8.1, T. Bili 0.2, alb 2.6. Fe 6, % sat 3.02, ferritin 162. B12 806, Folate 8.9. General: no distress, appears at stated age Derm: warm, dry Head: atraumatic, normocephalic, symmetric Mouth: no lip lesion, mucus membranes moist Cardiovascular: good distal perfusion in all 4 extremities Lungs: breathing comfortably, no accessory muscle use Ext: no gross muscle atrophy, no edema, no contractures Neuro: No focal neurologic deficits. Psych: Alert and oriented. Based on my assessment of this patient, this patient meets a high complexity level of care. Sepsis due to UTI: Rocephin 2g IV QD. Follow UCx + BCx. LR at 130 cc/hr. Telemetry monitoring. Tylenol 650 mg PO Q6H PRN fever. Normocytic anemia with Thrombocytosis: Likely iron def. anemia. Start IV iron infusion along with Folic acid 1mg PO QD. Rheumatoid arthritis: Immunocompromised due to use of MTX. Outpatient Rhematology follow up. Keratoconjunctivitis sicca: Prednisolone 1 drop BID PRN, Cyclosporine 1 drop BID. Resolved: HypoCl hypoNa CODE STATUS: FULL CODE DVT Prophylaxis: Lovenox. GI Prophylaxis: Designated medical POA if patient is not able to make medical decisions for themselves: . I have reviewed the following gis consultant notes: I have reviewed the results of the following tests: CBC, CMP, Iron studies, B12, Folate. I have ordered the following tests: I have discussed the care of this patient with the following independent historian: at bedside. I have independently interpreted the following test below: I have discussed the management of this patient with the following physician: Objective - Vital Signs Vital signs: Vital Signs Temp 98.4 F 12/19/24 07:48 Pulse 73 12/19/24 07:48 Resp 14 12/19/24 07:48 BP 94/62 12/19/24 07:48 Pulse Ox 93 L 12/19/24 07:48 FiO2 Intake & Output 12/18/24 12/19/24 12/19/24 18:59 06:59 18:59 Intake Total 540 Balance 540 Weight 58.967 kg 58.967 kg Intake: Oral 540 Other: Voiding Method Toilet Toilet # Voids 1 - Labs CBC & Chem 7: 12/19/24 05:39 12/19/24 05:39 Labs: Abnormal Lab Results - Last 24 Hours (Table) 12/18/24 12/18/24 12/18/24 Range/Units 16:41 16:41 16:41 WBC 27.39 H (4.50-10.00) 10*3/uL RBC 4.06 L (4.10-5.20) 10*6/uL Hgb 11.8 L (12.0-15.0) g/dL Hct 36.1 L (37.2-46.3) % MCHC (32.0-37.0) g/dL RDW (11.5-14.5) % Plt Count 578 H (140-440) 10*3/uL MPV 8.4 L (9.5-12.2) fL Immature Gran # 0.19 H (0.00-0.04) 10*3/uL Neutrophils # 24.69 H (1.80-7.70) 10*3/uL Lymphocytes # 0.88 L (0.90-5.00) 10*3/uL Monocytes # 1.50 H (0.20-1.00) 10*3/uL Sodium 136 L (137-145) mmol/L Chloride 96 L (98-107) mmol/L Creatinine 0.51 L (0.52-1.04) mg/dL BUN/Creatinine Ratio (12.00-20.00) Ratio Calcium (8.7-10.3) mg/dL Iron (50-170) UG/DL TIBC (228-460) UG/DL % Saturation (12.00-45.00) Transferrin (204.0-354.0) mg/dL Total Bilirubin (0.3-1.2) mg/dL Alkaline Phosphatase 136 H (38-126) U/L Total Protein (6.2-8.2) g/dL Albumin (3.8-4.9) g/dL Albumin/Globulin Ratio (1.60-3.17) Ratio Urine Protein 1+ H (Negative) Urine Blood Small H (Negative) Ur Leukocyte Esterase Moderate H (Negative) Urine RBC 8 H (0-5) /hpf Urine WBC 95 H (0-5) /hpf Urine Mucus Rare H (None) /hpf Urine Yeast (Budding) Few H (None) /hpf 12/19/24 12/19/24 12/19/24 Range/Units 05:39 05:39 05:39 WBC 19.83 H (4.50-10.00) 10*3/uL RBC 3.29 L (4.10-5.20) 10*6/uL Hgb 9.6 L (12.0-15.0) g/dL Hct 30.4 L (37.2-46.3) % MCHC 31.6 L (32.0-37.0) g/dL RDW 15.4 H (11.5-14.5) % Plt Count 523 H (140-440) 10*3/uL MPV 9.0 L (9.5-12.2) fL Immature Gran # 0.17 H (0.00-0.04) 10*3/uL Neutrophils # 16.83 H (1.80-7.70) 10*3/uL Lymphocytes # (0.90-5.00) 10*3/uL Monocytes # 1.50 H (0.20-1.00) 10*3/uL Sodium (137-145) mmol/L Chloride (98-107) mmol/L Creatinine 0.5 L (0.52-1.04) mg/dL BUN/Creatinine Ratio 24.00 H (12.00-20.00) Ratio Calcium 8.1 L (8.7-10.3) mg/dL Iron 6 L (50-170) UG/DL TIBC 199 L (228-460) UG/DL % Saturation 3.02 L (12.00-45.00) Transferrin 142.0 L (204.0-354.0) mg/dL Total Bilirubin 0.2 L (0.3-1.2) mg/dL Alkaline Phosphatase (38-126) U/L Total Protein 5.1 L (6.2-8.2) g/dL Albumin 2.6 L (3.8-4.9) g/dL Albumin/Globulin Ratio 1.04 L (1.60-3.17) Ratio Urine Protein (Negative) Urine Blood (Negative) Ur Leukocyte Esterase (Negative) Urine RBC (0-5) /hpf Urine WBC (0-5) /hpf Urine Mucus (None) /hpf Urine Yeast (Budding) (None) /hpf
[2024-12-19] MEDS: SODIUM FERRIC GLUCONAT-SUCROSE 125 MG in SODIUM CHLORIDE 0.9% 100 ML IVPB SCH (13:11)
[2024-12-19] MEDS: DOCUSATE 100 MG CAP PO SCH (15:21)
[2024-12-19] MEDS: cefTRIAXone 2 GM in DEXTROSE 5% IN WATER 50 ML IVPB SCH (17:42)
[2024-12-20 06:47] LABS: HCT 28.4 % (37.2-46.3); MCH 29.1 pg (27.0-32.0); MCHC 32.4 g/dL (32.0-37.0); MCV 89.9 fL (80.0-97.0); Mean Platelet Volume 8.9 fL (9.5-12.2); Platelet Count 553 10*3/uL (140-440); RBC 3.16 10*6/uL (4.10-5.20); RDW 15.2 % (11.5-14.5); WBC 14.14 10*3/uL (4.50-10.00)
[2024-12-20 06:58] LABS: HGB 9.2 g/dL (12.0-15.0)
[2024-12-20 07:15] LABS: African American GFR (CKD) >90 (>60 ml/min/1.73 sqM); Anion Gap 6 mmol/L; Blood Urea Nitrogen 9 mg/dL (7-17); Calcium 8.6 mg/dL (8.4-10.2); Carbon Dioxide 26 mmol/L (22-30); Chloride 108 mmol/L (98-107); Glucose 81 mg/dL (74-99); Non-African American GFR(CKD) >90 (>60 ml/min/1.73 sqM); Potassium 3.9 mmol/L (3.5-5.1); Sodium 140 mmol/L (137-145)
[2024-12-20 07:51] VITALS: TEMP 98.4
[2024-12-20] MEDS: FOLIC ACID 1 MG TAB PO SCH (08:36)
--- NOTE | 2024-12-20 11:19 | P.PN ---
Subjective Progress Note Date: 12/20/24 59 year old F with PMH of RA presents to the ED for fever and suprapubic discomfort. Patient reports fever that started on 12/07. She was evaluated in the ED and given a course of Keflex. When her symptoms persisted, she went to her PCP on Monday and was started on Ciprofloxacin. She reports nausea and vomiting since then. Persistent fever as high as 103F sent her to the ED. Of note, she stopped taking MTX 3 weeks ago in preparation for Remicade infusion. She denies any headache, edema, cough, chest pain, SOB, palpitations. No changes in appetite or weight. No dizziness, numbness/weakness/tinging of the extremities. In the ED she underwent extensive evaluation. BP 143/77, HR 96, T 102.9, RR 16, 96% on RA. CBC, Coag panel, CMP significant for WBC 27.39, RBC 4.06, Hg 11.8, Hct 36.1, Plt 578, Na 136, Cl 96, Cr 0.51, alk phos 136. Amylase + Lipase neg. Lactic acid 1.7. UA mod LE with 95 WBCs. Renal US no hydro. Started on Rocephin and admitted for further workup and management. 12/19 Patient was seen and examined. Feeling well. Suprapubic discomfort. CBC and CMP significant for WBC 19.83, RBC 3.29, Hg 9.6, Hct 30.4, PLt 523, Cr 0.5, Ca 8.1, T. Bili 0.2, alb 2.6. Fe 6, % sat 3.02, ferritin 162. B12 806, Folate 8.9. 12/20 Patient was seen and examined. Feeling well. Wanting to go home. BCx growing presumptive E. coli. CBC and BMP significant for WBC 14.14, RBC 3.16, Hg 9.2, Hct 28.4, Plt 553, Cl 108, Cr 0.38. General: no distress, appears at stated age Derm: warm, dry Head: atraumatic, normocephalic, symmetric Mouth: no lip lesion, mucus membranes moist Cardiovascular: good distal perfusion in all 4 extremities Lungs: breathing comfortably, no accessory muscle use Ext: no gross muscle atrophy, no edema, no contractures Neuro: No focal neurologic deficits. Psych: Alert and oriented. Based on my assessment of this patient, this patient meets a high complexity level of care. Sepsis due to UTI: Rocephin 2g IV QD. Follow final UCx + BCx. LR at 130 cc/hr. Telemetry monitoring. Tylenol 650 mg PO Q6H PRN fever. Normocytic anemia with Thrombocytosis: Likely iron def. anemia. IV iron infusion daily. Folic acid 1mg PO QD. Rheumatoid arthritis: Immunocompromised due to use of MTX. Outpatient Rhematology follow up. Keratoconjunctivitis sicca: Prednisolone 1 drop BID PRN, Cyclosporine 1 drop BID. Resolved: HypoCl hypoNa CODE STATUS: FULL CODE DVT Prophylaxis: Lovenox. GI Prophylaxis: Designated medical POA if patient is not able to make medical decisions for themselves: . I have reviewed the following exchange underwriting consultant notes: I have reviewed the results of the following tests: CBC, BMP, BCx. I have ordered the following tests: I have discussed the care of this patient with the following independent historian: ALEXI. I have independently interpreted the following test below: I have discussed the management of this patient with the following physician: Objective - Vital Signs Vital signs: Vital Signs Temp 98.4 F 12/20/24 07:50 Pulse 77 12/20/24 07:50 Resp 16 12/20/24 07:50 BP 123/78 12/20/24 07:50 Pulse Ox 95 12/20/24 07:50 FiO2 Intake & Output 12/19/24 12/20/24 12/20/24 18:59 06:59 18:59 Intake Total 1450 780 Balance 1450 780 Intake: Intake, IV Titration 1450 Amount Lactated Ringers 1,000 ml 1300 @ 130 mls/hr IV .[id number] [facility] Rx#:[id number] Sodium Ferric Gluconat- 100 Sucrose 125 mg In Sodium Chloride 0.9% 100 ml @ 100 mls/hr IVPB DAILY [facility] Rx#:[id number] cefTRIAXone 2 gm In 50 Dextrose 5% in Water 50 ml @ 100 mls/hr IVPB Q24HR@1800 [facility] Rx#: [id number] Oral 780 Other: Voiding Method Toilet Toilet Toilet # Bowel Movements 1 - Labs CBC & Chem 7: 12/20/24 05:58 12/20/24 05:58 Labs: Abnormal Lab Results - Last 24 Hours (Table) 12/20/24 12/20/24 Range/Units 05:58 05:58 WBC 14.14 H (4.50-10.00) 10*3/uL RBC 3.16 L (4.10-5.20) 10*6/uL Hgb 9.2 L D (12.0-15.0) g/dL Hct 28.4 L (37.2-46.3) % RDW 15.2 H (11.5-14.5) % Plt Count 553 H (140-440) 10*3/uL MPV 8.9 L (9.5-12.2) fL Chloride 108 H (98-107) mmol/L Creatinine 0.38 L (0.52-1.04) mg/dL Microbiology - Last 24 Hours (Table) 12/18/24 18:09 Blood Culture Gram Stain - Preliminary Blood Blood Culture - Preliminary Escherichia coli Molecular ID
[2024-12-20 13:29] VITALS: BP 121/76; PULSE 71; RESP 14
--- NOTE | 2024-12-20 17:34 | P.DS ---
Providers Date of admission: 12/18/24 18:00 Expected date of discharge: 12/20/24 Attending physician: Dipak Cabrales MD Primary care physician: Pranav Bell [facility] Course: 59 year old F with PMH of RA presents to the ED for fever and suprapubic discomfort. Patient reports fever that started on 12/07. She was evaluated in the ED and given a course of Keflex. When her symptoms persisted, she went to her PCP on Monday and was started on Ciprofloxacin. She reports nausea and vomiting since then. Persistent fever as high as 103F sent her to the ED. Of note, she stopped taking MTX 3 weeks ago in preparation for Remicade infusion. She denies any headache, edema, cough, chest pain, SOB, palpitations. No changes in appetite or weight. No dizziness, numbness/weakness/tinging of the extremities. In the ED she underwent extensive evaluation. BP 143/77, HR 96, T 102.9, RR 16, 96% on RA. CBC, Coag panel, CMP significant for WBC 27.39, RBC 4.06, Hg 11.8, Hct 36.1, Plt 578, Na 136, Cl 96, Cr 0.51, alk phos 136. Amylase + Lipase neg. Lactic acid 1.7. UA mod LE with 95 WBCs. Renal US no hydro. Started on Rocephin and admitted for further workup and management. 12/19 Patient was seen and examined. Feeling well. Suprapubic discomfort. CBC and CMP significant for WBC 19.83, RBC 3.29, Hg 9.6, Hct 30.4, PLt 523, Cr 0.5, Ca 8.1, T. Bili 0.2, alb 2.6. Fe 6, % sat 3.02, ferritin 162. B12 806, Folate 8.9. 12/20 Patient was seen and examined. Feeling well. Wanting to go home. BCx growing presumptive E. coli. CBC and BMP significant for WBC 14.14, RBC 3.16, Hg 9.2, Hct 28.4, Plt 553, Cl 108, Cr 0.38. Blood cultures show preliminary E coli with no resistance. Patient is eager to go home. She is feeling well. Discharge Plan: She will receive her 3rd dose of Rocephin tonight. Plans for discharge home after her antibiotic. Advised to continue Ciprofloxacin (already has a prescription) 500 mg PO QD BID x 4 days to complete a total of 7 days antibiotics for uncomplicated E. coli bacteremia. If anything changes once the cultures finalize, I will call her back to make adjustments to her medications. Advised to come back to the ED for fever > 100.4F not relieved with Tylenol or Ibuprofen. General: no distress, appears at stated age Derm: warm, dry Head: atraumatic, normocephalic, symmetric Mouth: no lip lesion, mucus membranes moist Cardiovascular: good distal perfusion in all 4 extremities Lungs: breathing comfortably, no accessory muscle use Ext: no gross muscle atrophy, no edema, no contractures Neuro: No focal neurologic deficits. Psych: Alert and oriented. Discharge Diagnosis: Sepsis due to E. coli bacteremia and UTI Normocytic anemia with Thrombocytosis Rheumatoid arthritis Keratoconjunctivitis sicca Resolved: HypoCl hypoNa This complex discharge took 35 minutes to complete. Patient Condition at Discharge: Stable Plan - Discharge Summary Discharge Rx Participant: No New Discharge Prescriptions: New Folic Acid 1 mg PO DAILY tab Acetaminophen Tab [Tylenol] 650 mg PO Q6HR PRN tab PRN Reason: Mild Pain Or Fever > 100.5 Docusate [Colace] 100 mg PO BID cap Ibuprofen [Motrin] 400 mg PO Q6HR PRN tab PRN Reason: Mild Pain Or Fever > 100.5 Continue Acetaminophen/Diphenhydramine [Tylenol PM 500-25mg] 2 tab PO HS cycloSPORINE 0.05% OPHTH SOLN [Restasis] 1 applicator BOTH EYES Q12H HYDROcodone/APAP 10-325MG [[place] 10-325] 1 tab PO Q4-6H PRN MDD 4.5 tabs PRN Reason: Pain Gabapentin [Neurontin] 300 mg PO HS Ciprofloxacin HCl [Cipro] 500 mg PO Q12HR prednisoLONE ACETATE 1% OPHTH [Pred Forte 1%] 1 drop BOTH EYES BID PRN PRN Reason: eye inflammation Discharge Medication List Acetaminophen/Diphenhydramine [Tylenol PM 500-25mg] 2 tab PO HS 12/18/24 [History] Ciprofloxacin HCl [Cipro] 500 mg PO Q12HR 12/18/24 [History] Gabapentin [Neurontin] 300 mg PO HS 12/18/24 [History] HYDROcodone/APAP 10-325MG [[place] 10-325] 1 tab PO Q4-6H PRN MDD 4.5 tabs 12/18/24 [History] cycloSPORINE 0.05% OPHTH SOLN [Restasis] 1 applicator BOTH EYES Q12H 12/18/24 [History] prednisoLONE ACETATE 1% OPHTH [Pred Forte 1%] 1 drop BOTH EYES BID PRN 12/18/24 [History] Acetaminophen Tab [Tylenol] 650 mg PO Q6HR PRN tab 12/20/24 [Rx] Docusate [Colace] 100 mg PO BID cap 12/20/24 [Rx] Folic Acid 1 mg PO DAILY tab 12/20/24 [Rx] Ibuprofen [Motrin] 400 mg PO Q6HR PRN tab 12/20/24 [Rx] Follow up Appointment(s)/Referral(s): Pranav Cam MD [Primary Care Provider] - 1-2 days Discharge Disposition: HOME SELF-CARE
== END 2024-12-20 18:35 | disposition home or self-care (01) | DRG 872 ==
LOC: EC 14:57 → 5NMEDONC 18:00
PROVIDERS: ADMIT Family Medicine; ATTEND Family Medicine
DX: A41.51 Sepsis due to Escherichia coli [E. coli] (principal); D84.821 Immunodeficiency due to drugs; M06.9 Rheumatoid arthritis, unspecified; D50.9 Iron deficiency anemia, unspecified; E87.1 Hypo-osmolality and hyponatremia; N39.0 Urinary tract infection, site not specified; T45.1X5A Adverse effect of antineoplastic and immunosuppressive drugs, initial encounter; D75.839 Thrombocytosis, unspecified; E86.0 Dehydration; H16.229 Keratoconjunctivitis sicca, not specified as Sjogren's, unspecified eye; Z87.891 Personal history of nicotine dependence; Z88.0 Allergy status to penicillin; X58.XXXA Exposure to other specified factors, initial encounter
CPT/HCPCS: 36415; 76770; 80048; 80053; 81001; 82150; 82607; 82728; 82746; 83540; 83550; 83605; 83690; 85025; 85027; 85610; 85730; 87040; 87077; 87086; 87186; 93005; 96361; 96365; 96375; 99291